=== PATIENT | female | born 1980 | race Caucasian/White ===

== ENCOUNTER → 2019-10-03 12:29 | Outpatient (CLI) | payer BC, SELFPAY ==
--- NOTE | ~2019-10-03 | MM_ITS ---
EXAMINATION: MM screening juan manuel BI w marsha HISTORY: Screening mammogram TECHNIQUE: Craniocaudal and mediolateral oblique 3-D tomosynthesis images were obtained and synthetic 2-D images were generated. CAD analysis was submitted and interpreted. COMPARISON: 10/20/2018 diagnostic right digital mammogram 08/01/2018 and 09/08/2013 bilateral digital screening mammogram examinations BREAST PARENCHYMAL COMPOSITION: The breasts are heterogeneously dense, which may obscure small masses . FINDINGS: There is a focal 5-6 mm asymmetric density not evident on the prior mammogram, situated pos teriorly in the outer left breast; diagnostic left mammogram is recommended, with ultrasound if requi red. Otherwise there is no evidence of suspicious mass, calcification, or architectural distortion to sugg est malignancy in either breast. There has been no suspicious interval change. IMPRESSION: 1. New asymmetric 5-6 mm opacity is suggested posteriorly in the outer left breast on screening CC vi ew 2. Diagnostic left mammogram is recommended, with ultrasound if required BI-RADS Category 0: Incomplete: Needs additional imaging evaluation. Reviewed, dictated and finalized at location A. ING INTERVENTIONIST IMPRESSION: 1. New asymmetric 5-6 mm opacity is suggested posteriorly in the outer left zehra ast on screening CC view 2. Diagnostic left mammogram is recommended, with ultrasound if required BI-RADS Category 0: Incomplete: Needs additional imaging evaluation.
== END ==
PROVIDERS: PCP Family Medicine; Visit Provider Nurse Practitioner
DX: Z12.31 Encounter for screening mammogram for malignant neoplasm of breast (principal); R92.8 Other abnormal and inconclusive findings on diagnostic imaging of breast
CPT/HCPCS: 77063; 77067

== ENCOUNTER → 2019-10-16 14:31 | Outpatient (CLI) | payer BC, SELFPAY ==
--- NOTE | ~2019-10-16 | MMUS_ITS ---
EXAMINATION: MM diagnostic mammo unilat LT, US breast LT complete HISTORY: New 5-6 mm asymmetric density situated posteriorly in the outer left breast on 10/03/2019 scr eening CC view. TECHNIQUE: Additional 3-D tomosynthesis images of the left breast were performed and synthetic 2-D im ages were generated. CAD analysis was submitted and interpreted. High resolution complete left breast ultrasound was performed. COMPARISON: 10/03/2019 bilateral digital screening mammogram FINDINGS: MAMMOGRAPHIC FINDINGS: No reproducible mass is evident. No architectural distortion, skin thickening or retraction or malign ant calcification. ULTRASOUND: No suspicious mass or shadowing is evident throughout the left breast. IMPRESSION: 1. No mammographic evidence of malignancy 2. Routine annual mammographic screening is recommended. BI-RADS Category 1: Negative Reviewed, dictated and finalized at location A. ENSATION SUPERVISOR IMPRESSION: 1. No mammographic evidence of malignancy 2. Routine annual mammographic screening is recommended. BI-RADS Category 1: Negative
== END ==
PROVIDERS: PCP Family Medicine; Visit Provider Obstetrics & Gynecology Gynecology
DX: R92.8 Other abnormal and inconclusive findings on diagnostic imaging of breast (principal)
CPT/HCPCS: 76641; 77065

== ENCOUNTER → 2020-10-16 14:45 | Outpatient (CLI) | payer BC, SELFPAY ==
--- NOTE | ~2020-10-16 | US_ITS ---
US thyroid 10/16/2020 15:01 Indication: Postprocedural hypothyroidism Procedure: High-resolution Limited ultrasound of the thyroid Comparison: No prior studies for comparison. Findings: The thyroid gland is surgically absent. No abnormal masses or fluid collections in the thyr oid bed. Impression: 1: Normal ultrasound of the thyroid bed. No residual masses. Reviewed, dictated and finalized at location B. EMBROIDERER Impression: 1: Normal ultrasound of the thyroid bed. No residual masses.
== END ==
DX: E89.0 Postprocedural hypothyroidism (principal)
CPT/HCPCS: 76536

== ENCOUNTER → 2021-11-27 11:58 | Outpatient (CLI) | payer BC, SELFPAY ==
--- NOTE | ~2021-11-27 | US_ITS ---
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 TECHNIQUE: Real-time sonographic images of the thyroid gland were obtained. COMPARISON: Comparison to multiple prior studies sequentially, with oldest reviewed study dated 09/28. FINDINGS: The thyroid gland is surgically absent. No abnormalities of the thyroid bed are identified. No abnormal vascularity. IMPRESSION: 1. Normal thyroid bed post thyroidectomy. No evidence for residual or recurrent malignancy. Reviewed, dictated and finalized at location A. IMPRESSION: 1. Normal thyroid bed post thyroidectomy. No evidence for residual or recurren t malignancy.
== END ==
PROVIDERS: PCP Family Medicine
DX: E89.0 Postprocedural hypothyroidism (principal)
CPT/HCPCS: 76536

== ENCOUNTER → 2022-10-26 08:45 | Outpatient (CLI) | payer BC, SELFPAY ==
--- NOTE | ~2022-10-26 | US_ITS ---
EXAMINATION: US thyroid DATE: 10/26/2022 09:25 INDICATION: Post procedural hypothyroidism. Papillary thyroid carcinoma. TECHNIQUE: Multiple ultrasound images of the thyroid were obtained. COMPARISON: Ultrasound 11/27/2021 FINDINGS: The thyroid is absent. There is no abnormal tissue in the thyroidectomy bed. IMPRESSION: 1. Thyroidectomy. Reviewed, dictated and finalized at location A. ARIAL MATHEMATICIAN IMPRESSION: 1. Thyroidectomy.
== END ==
PROVIDERS: PCP Family Medicine
DX: E89.0 Postprocedural hypothyroidism (principal)
CPT/HCPCS: 76536

== ENCOUNTER 2025-06-10 13:59 | Emergency (ER) | payer BC, SELFPAY ==
--- OUTSIDE RECORDS SUMMARY | 2024-10-02 03:50 | XMS_ITS ---
Author Organization [facility] Address [address] [place], [place] [id number] Care Team Providers Care Kiss Mixer Name Role Phone Aziza Frazier Unavailable Unavailable MIGUEL BAILEY Unavailable [phone] REASON FOR VISIT *Orthotic follow-up, feet doing well Encounters Encounter Location Date Provider Diagnosis [facility] [place] [address] [facility] [address] [place], [place] [id number] 10/02/2024 MIGUEL BAILEY Plan Of Treatment No Information Progress Notes * Halima AMATODOB:1980 (44 yo F)Acc No.[id number]:10/02/2024 Patient: Halima POSEY Provider: Carolann Bailey DPM :1980 A ge:44 Y S ex:Female Date:10/02/2024 Address[address] [id number] Subjective: * Chief Complaints: * 1 . *Orthotic follow-up, feet doing well. * Medical History: Objective: * Vitals: Assessment: Plan: * Treatment: * Billing Information: * Visit Code: * Procedure Codes: * Electronic signature of MIGUEL BAILEY DPM on 06/10/2025 at 02:01 PM CDT Sign off status: Pending * Provider: Carolann Bailey DPM Date: 0 10/02/2024 Generated for Printi ng/Faroseannag/eTransmitting on: 1 02:01 PM CDT
--- OUTSIDE RECORDS SUMMARY | 2024-10-12 03:30 | XMS_ITS ---
Author Organization [facility] Address [address] [address] Care Team Providers Care Rework Machine Operator Name Role Phone Aziza Frazier MD Primary Care Provider Amarjit Garrett [phone] Encounters Encounter Location Date Provider Diagnosis [facility] [address] [address] 10/12/2024 Amarjit Blanco Plan Of Treatment Next Appt Details Provider Name:Amarjit Blanco, 10/15/2025 08:00:00 AM, [address], [place] [address], [place], [address], Progress Notes * GEMINI AMATO LDOB:[birth year] (44 yo F)Acc No.[id number]:10/12/2024 [facility] Patient: JAGUAR POSEYLYUDMILA Bang Provider: Abhilash Blanco MD :1980 A ge:44 Y S ex:Female Date:10/12/2024 Address:[address], [id number] Pcp:Aziza Frazier MD Subjective: * Chief Complaints: * Objective: * Vitals: Assessment: Plan: * Treatment: * Billing Information: * Visit Code: * Procedure Codes: * Electronic signature of Ellen Blanco MD on 06/10/2025 at 02:01 PM CDT Sign off status: Pending * Provider: Abhilash Blanco MD Date: 0 10/12/2024 Generated for Rosangela augustin/Luisana/Stefani on: 1 02:01 PM CDT
--- NOTE | 2025-06-10 14:01 | ED_ITS ---
HPI - Skin/Abscess/Foreign Bdy General Chief complaint: Skin/Abscess/Foreign Body Stated complaint: Insect Bite LT Thigh Time Seen by Provider: 06/10/25 14:01 Source: patient Mode of arrival: ambulatory Limitations: no limitations History of Present Illness HPI narrative: Patient is a 44-year-old female who presents with left thigh redness and warmth after spider bite 2 days ago. Has been using ointment. Denies any fever, chills, nausea, vomiting, diarrhea. Is concerned because the redness has grown. Related Data Home Medications ?Medication ?Instructions ?Recorded ?Confirmed ?Last Taken ?Type levothyroxine 150 mcg tablet 150 mcg PO .6 times weekl y 11/12/22 06/10/25 Unknown History (Synthroid) norethindrone-e.estradiol tablet 06/10/25 Unknown His tory triphasic 0.5 mg/0.75 mg/1 mg-35 mcg tablet (Alyacen (28)) Allergies Allergy/AdvReac Type Severity Reaction Status Date / Time Sulfa (Sulfonamide Allergy Mild Rash Verified 06/10/25 14:01 Antibiotics) Review of Systems 2 Review of Systems: All systems reviewed & are unremarkable except as noted in HPI and below Constitutional: Constitutional: Denies body ache(s), Denies chills, Denies fatigue, Denies fever(s), Denies headache(s), Denies malaise and Denies weakness Eyes: Eyes: Denies blurry vision, Denies irritation and Denies loss of vision ENT: Denies otalgia, Denies headache(s), Denies nasal discharge, Denies sinus pain and Denies sore throat Cardiovascular: Cardiovascular: Denies chest pain, Denies irregular heart rhythm and Denies dyspnea Respiratory: Respiratory: Denies dyspnea Gastrointestinal: Gastrointestinal: Denies abdominal pain, Denies melena, Denies hematochezia, Denies diarrhea, Denies nausea and Denies vomiting Musculoskeletal: Musculoskeletal: Denies back pain, Denies myalgias and Denies arthralgias Integumentary/Breasts: Skin/Breast: Denies pruritus, Reports erythema, Denies rash, Reports skin swelling and Reports wounds Neurologic: Denies headache(s), Denies loss of vision and Denies weakness Psychiatric: Psychiatric: Reports no additional psychiatric complaints Endocrine: Endocrine: Denies fatigue PMFSH Past Medical History Medical History Skin cancer Anxiety Papillary thyroid carcinoma Family History Family History Mother Breast cancer Father Patient's father is in good health Grandparent Breast cancer Other Cerebrovascular accident Family history of cardiovascular disease Family history of genitourinary disease Family history of glaucoma Family history of mental disorder Hypertension Social History Social History Smoking status: Never smoker Second hand tobacco smoke exposure: No Alcohol intake: current Alcohol use details: socially Substance use: current Other substance usage details: edibles for sleep Comments At time of signature, agree with nursing past medical, surgical, social and family history. There is no relevant family history pertinent to the presenting complaint. Exam 2 Const: General: cooperative, healthy appearing, comfortable, no acute distress and well nourished Nutritional Appearance: well nourished O rientation/consciousness: patient oriented x3 Limitations: no limitations HENMT: Head: normal to inspection, normocephalic and atraumatic Ears: h earing grossly normal bilaterally and external ears normal Face/Nose/Sinus: N ormal external nose present, normal facial exam and face symmetric Face and sinus: normal facial exam and face symmetric Mouth: Yes lip normal Eyes: General: appearance normal, both eyes and all related structures A lignment and Position: alignment normal and position normal Periorbital: p eriorbital findings normal Eyelids: eyelids normal Pupils: Equal, round and reactive pupils present EOM: EOMs intact bilaterally Neck: Neck: normal visual inspection, full ROM and supple Chest: Chest palpation & inspection: normal inspection of the chest Resp: Effort & Inspection: normal respiratory effort and able to speak in complete sentences Auscultation: clear to auscultation bilaterally Cardio: Rate: regular rate Rhythm: regular rhythm Heart sounds: S1 normal heart sound present and S2 normal heart sound present GI: Inspection: normal to inspection Skin: General skin exam: normal color and no rashes or lesions noted Full body images: 1. erythema 5 cm x 4 cm with scabbed area 1cm x 0.5 cm at the center. warm to touch. No drainage Neuro: General: patient oriented x3 and moves all extremities Cranial nerves: Yes Equal, round and reactive pupils present Speech: normal speech Gait exam (Neuro): Normal gait present Extrem: General: normal to inspection, full ROM and no edema Psych: Appearance: grossly normal and well kempt Mental Status: mental status grossly normal Speech and movement: Normal speech and movement present Affect: normal affect Attitude: cooperative Thought process: Normal thought process present Course Course Emergency Course: Patient is aware of diagnosis, understands and agrees to treatment plan. Anticipatory guidance given. Patient agrees to follow-up as directed and is aware of reasons to seek care at the emergency department. Portions of this record may have been created with voice recognition software Level of Care: Express Care Visit Vital Signs Vital signs: Reviewed MDM - Skin/Abscess/Foreign Bdy MDM Narrative Medical decision making narrative: Pt well hydrated appearing, in no respiratory distress, hemodynamically stable. Recommend supportive care. The patient is stable at time of discharge the clinical impression was discussed and the patient was given the opportunity to ask questions, which were addressed as completely as possible given the information available at present. Anticipatory guidance and return to care precautions were discussed and the importance of primary care follow-up was stressed and encouraged. The patient voiced understanding of the plan, indications to return, and the need for follow-up. Exam findings show no acute concerns or changes Patient is appropriate for outpatient treatment and follow-up. Differential Diagnosis Differential diagnosis: Likely allergic reaction to drug, cellulitis, insect bites and contact dermatitis Medical Records Attestation: I reviewed the patient's medical records. Discharge Plan Discharge Clinical Impression: Accidental spider bite Cellulitis Qualifiers: Site of cellulitis: extremity Site of cellulitis of extremity: lower extremity Laterality: left Qualified Code(s): L03.116 - Cellulitis of left lower limb Patient Disposition: Home Condition: Stable Instructions: Cellulitis (ED) Additional Instructions: Please follow up with your Primary Care Doctor within 48-72 hours - call for an appointment. Rest and elevate affected area; apply moist heat 3-4 times daily for 10-15 minutes. Clean with soap and water only; Avoid using alcohol and peroxide. Elevate the affected area if possible Please take Antibiotics as directed. For pain, you may take: Tylenol 650-1000mg by mouth every 4-6 hours. Do not exceed 4000mg in 24 hours. Advil (Ibuprofen) 600 mg by mouth every 6 hours. Do not exceed 2400mg in 24 hours. 8 AM: Tylenol 11 AM: Ibuprofen 2 PM: Tylenol 5 PM: Ibuprofen 8 PM: Tylenol 11 PM: Ibuprofen 2 AM: Tylenol 5 AM: Ibuprofen If you experience any worsening redness, swelling, streaking (red lines), fever or chills please go to the ER Patient Language: Afghan Prescriptions: New cephalexin 500 mg capsule 500 mg PO QID 7 Days Qty: 28 0RF mupirocin 2 % ointment 1 applic topical BID Qty: 15 0RF No Action Alyacen 03/12/ (28) 0.5/0.75/1 mg- 35 mcg tablet levothyroxine [Synthroid] 150 mcg tablet 150 mcg PO .6 times weekly alprazolam 0.25 mg tablet 0.25 mg PO TID PRN (Reason: anxiety) Qty: 30 0RF Follow-up/Referrals: Aziza Frazier MD [Primary Care Provider, Family Practice] - 3 Days Time of Disposition: 14:37
--- OUTSIDE RECORDS SUMMARY | 2025-06-10 14:01 | XMS_ITS | Patient Health Record ---
Author Organization [facility] Address [address] [address] Care Team Providers Care Heat Treating Furnace Tender Name Role Phone Aziza Frazier MD Primary Care Provider UnavailAmarjit Yeboah Unavailable [phone] NacMeghana tovar Unavailable [phone] Allergies No Known Allergies Results Component Value Reference Range Notes TSH Reviewed date:10/17/2024 09:35:25 AM Interpretation:Normal Performing Lab:[place], [facility], [address] [place], [address] Michael Orr MD Notes/Report: NON-FASTING; NON-FASTING; NON-FASTING Received Date: TSH 1.12 Reference Range > or = 20 Years 0.40-4.50 Ranges First trimester 0.26-2.66 Second trimester 0.55-2.73 Third trimester 0.43-2.91 Thyroglobulin Quantitative a nd Antibody Reviewed date:10/17/2024 09:36:18 AM Interpretation:Normal Performing Lab:, [facility], [address] [facility] [place], [address] Arsalan Zhou Notes/Report: Received Date: NON-FASTING; NON-FASTING; NON-FASTING THYROGLOBULIN ANTIBODIES <1 < or = 1 IU/mL THYROGLOBULIN <0.1 Reference Range: Intact Thyroid 2.8-40.9 Athyrotic <0.1 Note: Abnormal flagging is based on the reference interval for patients with intact thyroid. This test was performed using the Denisha Akil chemiluminescent method. Values obtained from different assay methods cannot be used interchangeably. Thyroglobulin levels, regardless of value, should not be interpreted as absolute evidence of the presence or absence of disease. For additional information, please refer to [email or web address].Zones/faq/PEZ491 (This link is being provided for informational/ educational purposes only.) T4, FREE Reviewed date:10/17/2024 09:41:28 AM Interpretation:Normal Performing Lab:[place], [facility], [address] [place], [address] Michael Orr MD Notes/Report: Received Date: NON-FASTING; NON-FASTING; NON-FASTING T4, FREE 1.6 0.8-1.8 ng/dL Reason For Referral No Information Medications Medication SIG (Take, Route, Fr equency, Duration) Notes Start Date End Date Status ALPRAZolam 0.25 MG 1 tab(s) orally as needed Active Synthroid 150 MCG 1 tablet in the morn ing on an empty stomach Orally Once a day; Duration: 90 days Active Social History Tobacco Use: Social History Observation Description Date Details (start date - stop date) Never Smoker NA - NA Tobacco Use Question Answer Notes Tobacco use: Nonsmoker Problems Problem Type SNOMED Code ICD Code Onset Dates Problem Status W/U Status Risk Notes Problem Malignant neoplasm of thyroid gland (220594201) Malignant neoplasm of thyroid gland (C73) Active confirmed Problem Postoperative Hypothyroidism (94488115) Postprocedural hypothyroidism (E89.0) Active confirmed Vital Signs Blood pressure diastolic 76 mm Hg 10/12/2024 Height 69 in 10/12/2024 Blood pressure systolic 120 mm Hg 10/12/2024 Weight 165 lbs 10/12/2024 BMI 24.36 kg/m2 10/12/2024 Encounters Encounter Location Date Provider Diagnosis [facility] [address] [address] 10/12/2024 Meghana Naceanceno Postprocedural hypothyroidism E89.0 and Malignant neoplasm of thyroid gland C73 [facility] [address] [place] [address] 10/17/2024 Amarjit Blanco Assessments Encounter Date Diagnosis (ICD Code) Assessment Notes Treatment Notes Treatment Clinical Notes Section Notes 10/12/2024 Postprocedural hypothyroidism (ICD-10 - E89.0) old record reviewed: S/p thyroidectomy due to papillary carcinoma in 2018 Oct 2023: she has no complaints Ultrasound in 2022 are normal Continue Synthroid 150 mcg daily Whole body scan ordered TSH goal WNL, she is 5 yrs post cancer Oct 2024: Continue Synthroid 150 mcg daily WBS was normal in Oct 2023 TSH goal wnl 10/12/2024 Malignant neoplasm of thyroid gland (ICD-10 - C73) old record reviewed November 2017: Hx of papillary carcinoma in 2017 Path report: 1.5x1.2cm unifocal, nonencapsulated, with focal invasion of perithyroidal tissue (SHows Hurthle cell like substance) extending to margin, Staging: T3N0M0 s/p right hemithyroidectomy followed by total thyroidectomy 11/2017 HUMMEL treatment 12/2017 Whole body scans 12/2017 and 05/2019, both negative Sep 2019: Whole body scan negative. Oct 2022: USG normal 2023: Whole body scan Plan Of Treatment Pending Test Test Name Order Date TSH 10/13/2022 TSH 09/25/2019 TSH 10/14/2023 Beta HCG, Serum (Quantitative) Beta HCG, Serum (Qualitative) 09/25/2019 Thyroglobulin Quantitative and Antibody 09/25/2019 Thyroglobulin Quantitative and Antibody 11/23/2022 Thyroglobulin Quantitative and Antibody 10/14/2023 Thyroglobulin 10/13/2022 Future Test Test Name Order Date TSH 11/27/2022 Thyroglobulin Quantitative and Antibody 11/27/2022 TSH 10/28/2023 Thyroglobulin Quantitative and Antibody 10/28/2023 TSH 11/04/2023 Thyroglobulin Quantitative and Antibody 11/04/2023 Next Appt Details Provider Name:Amarjit Blanco, 10/15/2025 08:00:00 AM, [address], [facility] [address], [place], [address], Insurance Providers Payer Name Payer Address Payer Phone Subscriber Number Group Number Insured Name Patient Relationship to Insured Coverage Start Date Coverage End Date [employer] CHOICE [address] [place] [address] [id number] GEMINI AMATO Self - patient is the insured Medications Administered Medication Instructions Date of Administration Dosage Notes Thyrogen 10/16/2019 0.9 mg [facility]# [id number] 0-01 Thyrogen 10/17/2019 0.9 mg [facility]# [id number] 0-01 Medical (General) History Medical History History ICD Code 26-06 2.5 hours of reconst ructive surgery due to childbirth, 03-27-08 C section, 11-09-17 Thyroidectomy, 03-24-18 Lipoma removal, 11-04-18 skin cancer removal Surgical History Surgery Date(Month/Year)
--- OUTSIDE RECORDS SUMMARY | 2025-06-10 14:01 | XMS_ITS | Clinical Summary ---
Author Organization [facility] Address [address] [place] [phone] Phone Care Team Providers Care Flask Maker Name Role Phone Aziza Frazier MD Primary Care Provider [phone] Allergies No known active allergies Medications No known medications Social History Tobacco Use Types Packs/Day Years Used Date Smoking Tobacco: Never Assessed Comments Unknown Sex and Gender Information Value Date Recorded Sex Assigned at Not on file Legal Sex Female 12:54 PM CDT Gender Identity Not on file Sexual Orientation Not on file Last Filed Vital Signs Vital Sign Reading Time Taken Comments Blood Pressure 140/91 11/30/2023 9:05 AM CDT Pulse 87 11/30/2023 9:05 AM CDT Temperature 36.2 C (97.2 F) 11/30/2023 9:05 AM CDT Respiratory Rate 16 11/30/2023 9:05 AM CDT Oxygen Saturation 100% 11/30/2023 9:05 AM CDT Inhaled Oxygen Concentration - - Weight - - Height - - Body Mass Index - - Plan of Treatment Health Maintenance Due Date Last Done Comments DTAP/TDAP/TD VACCINES (1 - Tdap) 1997 HEPATITIS B VACCINES (1 of 3 - + 3-dose series) 1997 HPV/Cotest (21-29) 1999 CERVICAL CANCER SCREENING 2008 HPV/Cotest (30-65) 2008 PAP SMEAR 2008 COLORECTAL SCREENING 2023 Colorectal Cancer Screening 2023 FIT-DNA Q 3 years 2023 FIT/FOBT Q 1 year 2023 Flex Sig/CT Colonography Q 5 years 2023 BREAST CANCER SCREENING 10/28/2024 10/28/19 24, 10/28/2023, 10/22/2022, Additional history exists INFLUENZA VACCINE (#1) 2025 HPV VACCINES Aged Out No longer eligi ble based on patient's age to complete this topic Insurance [facility] BLUE ACCESS CHOICE Care Teams Flask Maker Relationship Specialty Start Date End Date Aziza Frazier MD [address] [place] [address] PCP - General Family Practice 11/23/17
--- OUTSIDE RECORDS SUMMARY | 2025-06-10 14:01 | XMS_ITS | Clinical Summary ---
Author Organization [facility] Address [address] [place] [address] Care Team Providers Care Bowling Floor Desk Clerk Name Role Phone Aziza Frazier MD Primary Care Provider [phone] Allergies Active Allergy Reactions Criticality Noted Date Comments Sulfa (Sulfonamide Antibiotics) Medications levothyroxine (SYNTHROID) 150 mcg tablet Take 1 tablet (150 mcg total) by mouth commercial service technician before breakfast Active ALPRAZolam (XANAX) 0.25 mg tablet Take 1 tablet (0.25 mg total) by mouth nightly as needed for anxiety Active Pirmella 0.5/0.75/1 mg- 35 mcg per tablet 0 Active Active Problems No known active problems Encounters Date Type Department Care Team Description 04/20/2025 6:30 AM CDT - 04/20/2025 11:59 PM CDT Hospital Encounter [facility] [address] [place] [address] Heterogeneously dense tissue of both breasts on mammography; At high risk for breast cancer Discharge Disposition: Discharge to home or self care from Last 3 Months Immunizations Immunization Administration Dates Next Due Influenza, Quadrivalent, Spl it, Preservative Free, Intramuscular 06/24/2018 Influenza, Trivalent, IM (MDV) 06/26/2018 Influenza, Unspecified 07/13/2024 Surgical History Surgery Date Site/Laterality Comments SECTION THYROIDECTOMY Medical History Medical History Date Comments History of thyroidectomy Skin cancer History of radiation therapy Family History Medical History Relation Name Comments Prostate cancer Father Lung cancer Maternal Grandfather Breast cancer Mother Ovarian cancer Paternal Grandmother Relation Name Status Comments Father Maternal Grandfather Mother Paternal Grandmother Social History Tobacco Use Types Packs/Day Years Used Date Smoking Tobacco: Never Tobacco Cessation:Counseling Given: Not Answered Alcohol Use Standard Drinks/Week Comments Yes 0 (1 standard drink = 0.6 oz pur e alcohol) socially Comments Unknown Sex and Gender Information Value Date Recorded Sex Assigned at Not on file Legal Sex Female 8:15 AM DIE MACHINE OPERATOR Gender Identity Female 05/30/2020 12:14 PM CDT Sexual Orientation Straight 05/30/2020 12 :14 PM CDT Obstetrics History Last Filed Vital Signs Vital Sign Reading Time Taken Comments Blood Pressure - - Pulse - - Temperature - - Respiratory Rate - - Oxygen Saturation - - Inhaled Oxygen Concentration - - Weight 75.3 kg (166 lb) 04/20/2025 6:43 AM CDT Height 175.3 cm (5' 9) 04/20/2025 6:43 AM CDT Body Mass Index 24.51 04/20/2025 6:43 AM CDT Plan of Treatment Health Maintenance Due Date Last Done Comments Cervical Cancer Screening 1978 Colon Cancer Screening-Colonoscopy 1978 Depression Screening 1978 Hepatitis C Screening 1978 DTaP/Tdap/Td Vaccine (1 - Tdap) 1989 Hepatitis B Screening 1996 Regular Well Visit/Exam 18-64 1996 Influenza Vaccine (#1) 2025 , 06/26/2018, 06/24/2018 Breast Cancer Screening-Mammogram 11/02/2025 11/02/2024, 10/28/2023, 10/22/2022, Additional history exists HPV Vaccines Aged Out No longer eligi ble based on patient's age to complete this topic Pneumococcal vaccine <65 Aged Out No longer eligible based on patient's age to complete this topic Procedures Procedure Name Priority Date/Time Associated Diagnosis Comments MRI BREAST BILATERAL W WO CONTRAST Schedule Routine, Read Routine (OP Routine) 04/20/2025 7:23 AM CDT Heterogeneously dense tissue of both breasts on mammography At high risk for breast cancer SCREENING MAMMOGRAM BILATERAL W KIET Schedule Routine, Read Routine (OP Routine) 11/02/2024 9:10 AM DIE MACHINE OPERATOR Family history of breast cancer from Last 3 Months or Most Recently Relevant to Health Maintenance Results * MRI Breast Bilateral W WO Contrast (04/20/2025 7:23 AM CDT) Anatomical Region Laterality Modality Breast Bilateral Magnetic Resonan ce 04/20/2025 9:43 AM CDT Impressions 04/20/2025 9:43 AM CDT No MRI evidence of malignancy in either breast. OVERALL FINAL ASSESSMENT: BI-RADS Category 1: Negative. RECOMMENDATION: Annual screening mammography and breast MRI are recommended. Electronically signed by: Delphine Arrington M.D. Narrative 04/20/2025 9:43 AM CDT EXAMINATION: 1. MRI EXAMINATION OF THE BREASTS WITH AND WITHOUT CONTRAST 2. 3D POST PROCESSING ON A DEDICATED 3D WORKSTATION HISTORY: 44-year-old woman presenting for supplemental screening due to elevated lifetime risk due to family history (23.7%) and dense breast tissue. TECHNIQUE: MRI examination of the breasts per breast tumor protocol with and without gadolinium contrast. A dedicated breast imaging coil was used. The images were transferred to a breast CAD system for 3D post processing and contrast kinetics analysis. CONTRAST: Gadoterate meglumine, 14 ml COMPARISON: MRI dated 04/14/2024, 04/14/2023, 04/16/2022, and screening mammogram dated 11/02/2024. BREAST COMPOSITION: Extreme fibroglandular tissue BACKGROUND PARENCHYMAL ENHANCEMENT: Mild FINDINGS: No new suspicious enhancing mass or non-mass enhancement in either breast. No abnormally enlarged lymph nodes are identified in the visualized portions of either axilla. There are unchanged T1 intrinsically hyperintense lesions in the sternum with associated signal dropout on the fat saturated sequences, which may represent benign hemangiomas. us Dayanna Segundo NP [facility] MRI PROCEDURES Final Resul t * Screening Mammogram Bilateral W Kiet (11/02/2024 9:10 AM DIE MACHINE OPERATOR) Anatomical Region Laterality Modality Breast Bilateral Mammography Narrative 11/02/2024 11:10 AM DIE MACHINE OPERATOR Mammogram Technique: Bilateral Digital Breast Tomosynthesis, Bilateral C-view 2D Screening mammogram. Views obtained: bilateral craniocaudal and bilateral mediolateral oblique. Computer Aided Detection was performed. Mammogram Findings: The present examination has been compared to prior imaging studies performed at [facility] on 10/16/2021, 10/22/2022 and 10/28/2023. The breasts are extremely dense, which lowers the sensitivity of mammography. There is no suspicious abnormality in either breast. Impression: There is no mammographic evidence of malignancy. Annual screening mammography is recommended. Consider breast MRI for supplemental screening given the patient's extremely dense breast tissue. OVERALL FINAL ASSESSMENT: BI-RADS CATEGORY 1: Negative. Procedure Note Zoraida Allen MD - 11/02/2024 Mammogram Technique: Bilateral Digital Breast Tomosynthesis, Bilateral C-view 2D Screening mammogram. Views obtained: bilateral craniocaudal and bilateral mediolateral oblique. Computer Aided Detection was performed. Mammogram Findings: The present examination has been compared to prior imaging studies performed at [facility] on 10/16/2021, 10/22/2022 and 10/28/2023. The breasts are extremely dense, which lowers the sensitivity of mammography. There is no suspicious abnormality in either breast. Impression: There is no mammographic evidence of malignancy. Annual screening mammography is recommended. Consider breast MRI for supplemental screening given the patient's extremely dense breasttissue. OVERALL FINAL ASSESSMENT: BI-RADS CATEGORY 1: Negative. Dayanna Segundo NP IM MAMMO PROCEDURES Final Res ult from Last 3 Months or Most Recently Relevant to Health Maintenance Insurance [facility] ACCESS CHOICE ANTHEM ACCESS CHOICE ANTHEM ACCESS CHOICE Care Teams Bowling Floor Desk Clerk Relationship Specialty Start Date End Date Aizza Frazier MD PCP - General Family Medicine 04/29/20
--- OUTSIDE RECORDS SUMMARY | 2025-06-10 14:01 | XMS_ITS | Clinical Summary ---
Author Organization [facility] Care Team Providers Care Online Affiliate Marketing Manager Name Role Phone Unavailable Primary Care Provider Unavailabl e Social History Tobacco Use Types Packs/Day Years Used Date Smoking Tobacco: Never Assessed Comments Unknown Sex and Gender Information Value Date Recorded Sex Assigned at Not on file Legal Sex Female 1:45 PM GLASS SETTER Gender Identity Not on file Sexual Orientation Not on file Plan of Treatment Health Maintenance Due Date Last Done Comments Hepatitis C Virus (HCV) Screening 1978 TdaP Immunization 1978 Hepatitis B Immunization (1 of 3 - 19+ 3-dose series) 1997 Pap Smear 1999 Cervical Cancer Screening (CCS) 2008 HPV/Cotest 2008 Cologuard 2023 Colonoscopy 2023 Colorectal Cancer Screening 2023 Immunochemical Fecal Occult Blood 2023 Influenza Immunization (#1) 05/07/202501/2020, 06/26/2018 SARS-COV-2 Immunization ( season) 2025 Respiratory Syncytial Virus (RSV) Immunization (Adult) (1 - 1-dose 75+ series) 2053 Human Papillomavirus (HPV) Immunization Aged Out No longer eligible b ased on patient's age to complete this topic Meningococcal Immunization (ACWY) Aged Out No longer eligible b ased on patient's age to complete this topic Pneumococcal Immunization Combined Aged Out No longer eligible b ased on patient's age to complete this topic Rotavirus Immunization Aged Out No lo nger eligible based on patient's age to complete this topic
--- OUTSIDE RECORDS SUMMARY | 2025-06-10 14:01 | XMS_ITS | Patient Health Record ---
Author Organization [facility] Address [address] [place], [place] [id number] Care Team Providers Care Extrusion Utility Worker Name Role Phone Aziza Frazier Unavailable Unavailable MIGUEL BAILEY Unavailable [phone] Allergies Allergen (clinical drug ingredient) Drug/Non Drug Allergy documented on EMR Reaction Allergy Type Onset Date Status Substance with sulfonamide structure and antibacterial mechanism of action (substance) Sulfa Antibiotics Unknown Drug Allergy Active Reason For Referral No Information Medications Medication SIG (Take, Route, Fr equency, Duration) Notes Start Date End Date Status ALPRAZolam 0.25 MG 1 tablet Orally Twice a day Active Synthroid 150 MCG 1 tablet in the morn ing on an empty stomach Orally Once a day Active Immunizations Vaccine Route Administration Date Status Comme nts Pneumococcal conjugate PCV 13 Unknown 09/05/2024 Refuse d Influenza, high dose seasonal Unknown 09/05/2024 Refuse d Vital Signs Height-cm 175.26 cm 09/05/2024 Weight-kg 72.12 kg 09/05/2024 Height 69 in 09/05/2024 Weight 159 lbs 09/05/2024 BMI 23.48 kg/m2 09/05/2024 Encounters Encounter Location Date Provider Diagnosis [facility] [address] [place] [id number] 06/19/2024 MIGUEL BAILEY Plantar fascial fibromatosis M72.2 ; Posterior tibial tendinitis, right leg M76.821 ; Calcaneal spur, right foot M77.31 and Left foot pain M79.672 [facility] [address] [place], [place] [id number] 07/10/2024 MIGUEL SNOOK Plantar fascial fibromatosis M72.2 ; Posterior tibial tendinitis, right leg M76.821 ; Calcaneal spur, right foot M77.31 and Pain in right foot M79.671 [facility] [place] [id number] [facility] [address] [place], [place] [id number] 09/05/2024 MIGUEL SNOOK Plantar fascial fibromatosis M72.2 ; Posterior tibial tendinitis, right leg M76.821 ; Calcaneal spur, right foot M77.31 and Pain in right foot M79.671 Assessments Encounter Date Diagnosis (ICD Code) Assessment Notes Treatment Notes Treatment Clinical Notes Section Notes 06/19/2024 Plantar fascial fibromatosis (ICD-10 - M72.2) Plantar Fascitis: I discussed anti-inflammatory treatment options and various means of pronation control with the patient. I educated the patient on icing and stretching, supportive shoegear, and the use of orthotic devices. PowerStep Inserts: The patient was dispensed and fitted with over the counter arch supports. The patient was educated on their use and effect. All questions were answered. 06/19/2024 Posterior tibial tendinitis, right leg (ICD-10 - M76.821) Posterior Tibialis Tendon Dysfunction: I discussed anti-inflammatory treatment options and various means of immobilization with the patient. I educated the patient on icing and stretching, supportive shoegear, and the use of orthotic devices and bracing. 07/10/2024 Plantar fascial fibromatosis (ICD-10 - M72.2) Plantar Fascitis: I discussed anti-inflammatory treatment options and various means of pronation control with the patient. I educated the patient on icing and stretching, supportive shoegear, and the use of orthotic devices. Orthotic Scan: The patient was scanned for functional orthotic devices. This was done in the subtalar joint neutral position in a non-weightbearing fashion. The patient will follow-up in 3-4 weeks time to be dispensed and fitted with the devices. 07/10/2024 Posterior tibial tendinitis, right leg (ICD-10 - M76.821) Posterior Tibialis Tendon Dysfunction: I discussed anti-inflammatory treatment options and various means of immobilization with the patient. I educated the patient on icing and stretching, supportive shoegear, and the use of orthotic devices and bracing. 09/05/2024 Plantar fascial fibromatosis (ICD-10 - M72.2) Plantar Fascitis: I discussed anti-inflammatory treatment options and various means of pronation control with the patient. I educated the patient on icing and stretching, supportive shoegear, and the use of orthotic devices. Orthotic Dispense: The orthotic devices were dispensed and fitted. It was noted that the orthotic conformed well to the patient's foot in the subtalar joint neutral position. The patient was educated on the device's use, as well as the gradual break-in period for the device. 09/05/2024 Posterior tibial tendinitis, right leg (ICD-10 - M76.821) Posterior Tibialis Tendon Dysfunction: I discussed anti-inflammatory treatment options and various means of immobilization with the patient. I educated the patient on icing and stretching, supportive shoegear, and the use of orthotic devices and bracing. 09/05/2024 Calcaneal spur, right foot (ICD-10 - M77.31) 07/10/2024 Calcaneal spur, right foot (ICD-10 - M77.31) 06/19/2024 Calcaneal spur, right foot (ICD-10 - M77.31) 06/19/2024 Left foot pain (ICD-10 - M79.672) 07/10/2024 Pain in right foot (ICD-10 - M79.671) 09/05/2024 Pain in right foot (ICD-10 - M79.671) Plan Of Treatment No Information Insurance Providers Payer Name Payer Address Payer Phone Subscriber Number Group Number Insured Name Patient Relationship to Insured Coverage Start Date Coverage End Date [facility] ([facility]) ATTN CLAIMS [address] [place] [address] [id number] Halima Amato Self - patient is the insured Medical (General) History Medical History History ICD Code skin cancer Leg/Feet cramps Thyroid Disease Surgical History Surgery Date(Month/Year) thyroidectomy
--- OUTSIDE RECORDS SUMMARY | 2025-06-10 14:02 | XMS_ITS | Encounter Summary ---
Author Organization [facility] Address [address] [place] [address] Phone Care Team Providers Care Warehouse Freight Handler Name Role Phone Aziza Frazier MD Primary Care Provider [phone] Encounter Details Date Type Department Care Team (Late st Contact Info) Description 10/18/2020 Telephone [facility] Surgery [address] [place] [address] Advanced Medicine 5th [place] [address] [place] [phone] Mili Ruth Social History Tobacco Use Types Packs/Day Years Used Date Smoking Tobacco: Never Alcohol Use Standard Drinks/Week Comments Yes 0 (1 standard drink = 0.6 oz pur e alcohol) socially Comments Unknown Sex and Gender Information Value Date Recorded Sex Assigned at Not on file 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
[2025-06-10 14:06] VITALS: BP 125/89; PULSE 89; RESP 18; TEMP 37; O2SAT 99
== END 2025-06-10 14:40 | disposition home or self-care (01) ==
PROVIDERS: Emergency Provider Nurse Practitioner Family; PCP Family Medicine
DX: L03.116 Cellulitis of left lower limb (principal); S70.362A Insect bite (nonvenomous), left thigh, initial encounter; W57.XXXA Bitten or stung by nonvenomous insect and other nonvenomous arthropods, initial encounter; F41.9 Anxiety disorder, unspecified; Z85.828 Personal history of other malignant neoplasm of skin; Z85.850 Personal history of malignant neoplasm of thyroid
CPT/HCPCS: 99213; G0463

== ENCOUNTER 2025-07-15 16:23 | Emergency (ER) | payer BC, SELFPAY ==
--- OUTSIDE RECORDS SUMMARY | 2024-10-12 02:30 | XMS_ITS ---
Author Organization [facility] Address [address] [address] Care Team Providers Care Campground Manager Name Role Phone Aziza Frazier MD Primary Care Provider Amarjit Garrett [phone] Encounters Encounter Location Date Provider Diagnosis [facility] [address] [address] 10/12/2024 Amarjit Blanco Plan Of Treatment Next Appt Details Provider Name:Amarjit Blanco, 10/15/2025 08:00:00 AM, [address], [place] [address], [place], [address], Progress Notes * GEMINI AMATO LDOB:[birth year] (44 yo F)Acc No.[id number]:10/12/2024 [facility] Patient: JAGUAR POSEYLYUDMILA Bang Provider: Abhilash Blanco MD :1980 A ge:44 Y S ex:Female Date:10/12/2024 Address:[address], [id number] Pcp:Aziza Frazier MD Subjective: * Chief Complaints: * Objective: * Vitals: Assessment: Plan: * Treatment: * Billing Information: * Visit Code: * Procedure Codes: * Electronic signature of Ellen Blanco MD on 07/15/2025 at 04:29 PM SHARK BIOLOGIST Sign off status: Pending * Provider: Abhilash Blanco MD Date: 0 10/12/2024 Generated for Rosangela augustin/Luisana/Stefani on: 1 09/14/2024 04:29 PM SHARK BIOLOGIST
--- OUTSIDE RECORDS SUMMARY | 2025-07-15 16:29 | XMS_ITS | Clinical Summary ---
Author Organization [facility] Address [address] [place] [phone] Care Team Providers Care Patient Observation Assistant Name Role Phone Aziza Frazier MD Primary Care Provider Allergies Active Allergy Reactions Criticality Noted Date Comments Sulfa (Sulfonamide Antibiotics) Medications levothyroxine (SYNTHROID) 150 mcg tablet Take 1 tablet (150 mcg total) by mouth research program internship before breakfast Active ALPRAZolam (XANAX) 0.25 mg tablet Take 1 tablet (0.25 mg total) by mouth nightly as needed for anxiety Active Pirmella 0.5/0.75/1 mg- 35 mcg per tablet 0 Active Active Problems No known active problems Encounters Date Type Department Care Team Description 04/20/2025 6:30 AM CDT - 04/20/2025 11:59 PM CDT Hospital Encounter [facility] [address] [place] [phone] Heterogeneously dense tissue of both breasts [...] on file 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 Dayanna Segundo NP [facility] [place] MRI PROCEDURES Montse sumanth Result * Screening Mammogram Bilateral W Kiet (11/02/2024 9:10 AM PROFESSOR OF GEOGRAPHY) Anatomical Region Laterality Modality Breast Bilateral Mammography Narrative 11/02/2024 11:10 AM PROFESSOR OF GEOGRAPHY Mammogram Technique: Bilateral Digital Breast Tomosynthesis, Bilateral C-view 2D Screening mammogram. Views obtained: bilateral craniocaudal and bilateral mediolateral oblique. Computer Aided Detection was performed. Mammogram Findings: The present examination has been compared to prior imaging studies performed at [facility] on 10/16/2021, 10/22/2022 and 10/28/2023. The breasts [...] compared to prior imaging studies performed at [facility] on 10/16/2021, 10/22/2022 and 10/28/2023. The breasts are extremely dense, which lowers the sensitivity of mammography. There is no suspicious abnormality in either breast. Impression: There is no mammographic evidence of malignancy. Annual screening mammography is recommended. Consider breast MRI for supplemental screening given the patient's extremely dense breasttissue. OVERALL FINAL ASSESSMENT: BI-RADS CATEGORY 1: Negative. Dayanna Segundo NP IMG MAMMO PROCEDURES Fi nal Result from Last 3 Months or Most Recently Relevant to Health Maintenance Insurance [facility] ACCESS CHOICE ANTHEM ACCESS CHOICE ANTHEM ACCESS CHOICE Care Teams Patient Observation Assistant Relationship Specialty Start Date End Date Aziza Frazier MD PCP - General Family Medicine 04/29/20
--- OUTSIDE RECORDS SUMMARY | 2025-07-15 16:29 | XMS_ITS | Clinical Summary ---
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
--- OUTSIDE RECORDS SUMMARY | 2025-07-15 16:29 | XMS_ITS | Patient Health Record ---
Author Organization [facility] Address [address] [place], [place] [id number] Care Team Providers Care Counter Help Name Role Phone FreddieAziza Unavailable Unavailable MIGUEL BAILEY Unavailable [phone] Allergies Allergen (clinical drug ingredient) Drug/Non Drug Allergy documented on EMR Reaction Allergy Type Onset Date Status Substance with sulfonamide structure and antibacterial mechanism of action (substance) Sulfa Antibiotics Unknown Drug Allergy Active Reason For Referral No Information Medications Medication SIG (Take, Route, Frequency, Duration) Notes Start Date End Date Status ALPRAZolam 0.25 MG Tablet 1 tablet Orall y Twice a day Active Synthroid 150 MCG Tablet 1 tablet in the morning on an empty stomach Orally Once a day Active Immunizations Vaccine Route Administration Date Status Comme nts Influenza, high dose seasonal Unknown 09/05/2024 Refuse d Pneumococcal conjugate PCV 13 Unknown 09/05/2024 Refuse d Vital Signs Height-cm 175.26 cm 09/05/2024 Weight-kg 72.12 kg 09/05/2024 Height 69 in 09/05/2024 Weight 159 lbs 09/05/2024 BMI 23.48 kg/m2 09/05/2024 Encounters Encounter Location Date Provider Diagnosis [facility] [address] [address] [facility] [address] [place], [place] [id number] 09/05/2024 MIGUEL BAILEY Plantar fascial fibromatosis M72.2 ; Posterior tibial tendinitis, right leg M76.821 ; Calcaneal spur, right foot M77.31 and Pain in right foot M79.671 Assessments Encounter Date Diagnosis (ICD Code) Assessment Notes Treatment Notes Treatment Clinical Notes Section Notes 09/05/2024 Plantar fascial fibromatosis (ICD-10 - M72.2) [...] Calcaneal spur, right foot (ICD-10 - M77.31) 09/05/2024 Pain in right foot (ICD-10 - M79.671) Plan Of Treatment No Information Insurance Providers Payer Name Payer Address Payer Phone Subscriber Number Group Number Insured Name Patient Relationship to Insured Coverage Start Date Coverage End Date [facility] ([facility]) ATTN CLAIMS [address] [place] [address] [id number] Halima Amato Self - patient is the insured Medical (General) History Medical History History ICD Code skin cancer Leg/Feet cramps Thyroid Disease Surgical History Surgery Date(Month/Year) thyroidectomy
--- OUTSIDE RECORDS SUMMARY | 2025-07-15 16:29 | XMS_ITS | Patient Health Record ---
Author Organization [facility] Address [address] [address] Care Team Providers Care Cash Analyst Name Role Phone Aziza Frazier MD Primary Care Provider UnavailAmarjit Yeboah Unavailable [phone] NacMeghana tovar Unavailable [phone] Allergies No Known Allergies Results Component Value Reference Range Notes TSH Reviewed date:10/17/2024 09:35:25 AM Interpretation:Normal Performing Lab:[place], [facility], [address] [place], [address] Michael Orr MD Notes/Report: Received Date: NON-FASTING; NON-FASTING; NON-FASTING TSH 1.12 Reference Range > or = 20 Years 0.40-4.50 Ranges First trimester 0.26-2.66 Second trimester 0.55-2.73 Third trimester 0.43-2.91 Thyroglobulin Quantitative a nd Antibody Reviewed date:10/17/2024 09:36:18 AM Interpretation:Normal Performing Lab:[place], [facility], [address], [place], [address] Arsalan Zhou Notes/Report: Received Date: NON-FASTING; NON-FASTING; NON-FASTING THYROGLOBULIN ANTIBODIES <1 < or = 1 IU/mL THYROGLOBULIN <0.1 Reference Range: Intact Thyroid 2.8-40.9 Athyrotic <0.1 Note: Abnormal flagging is based on the reference interval for patients with intact thyroid. This test was performed using the Denisha Tieton chemiluminescent method. Values obtained from different assay methods cannot be used interchangeably. Thyroglobulin levels, regardless of value, should not be interpreted as absolute evidence of the presence or absence of disease. 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 Vital Signs Blood pressure diastolic 76 mm Hg 10/12/2024 Height 69 in 10/12/2024 Blood pressure systolic 120 mm Hg 10/12/2024 Weight 165 lbs 10/12/2024 BMI 24.36 kg/m2 10/12/2024 Encounters Encounter Location Date Provider Diagnosis [facility] [address] [address] 10/12/2024 Meghana Naceanceno Postprocedural hypothyroidism E89.0 and Malignant neoplasm of thyroid gland C73 [facility] [address] [place] [address] 10/17/2024 Amarjit Blanco Assessments Encounter Date Diagnosis [...] Pending Test Test Name Order Date TSH 09/25/2019 TSH 10/14/2023 TSH 10/13/2022 Beta HCG, Serum (Quantitative) Beta HCG, Serum (Qualitative) 09/25/2019 Thyroglobulin Quantitative and Antibody 09/25/2019 Thyroglobulin Quantitative and Antibody 11/23/2022 Thyroglobulin Quantitative and Antibody 10/14/2023 Thyroglobulin 10/13/2022 Future Test Test Name Order Date TSH 11/27/2022 Thyroglobulin Quantitative and Antibody 11/27/2022 TSH 10/28/2023 Thyroglobulin Quantitative and Antibody 10/28/2023 TSH 11/04/2023 Thyroglobulin Quantitative and Antibody 11/04/2023 Next Appt Details Provider Name:Amarjit Blanco, 10/15/2025 08:00:00 AM, [address], [facility], [place], [address], Insurance Providers Payer Name Payer Address Payer Phone Subscriber Number Group Number Insured Name Patient Relationship to Insured Coverage Start Date Coverage End Date [employer] [address] [place] [address] [id number] GEMINI AMATO Self - patient is the insured Medications Administered Medication Instructions Date of Administration Dosage Notes Thyrogen 10/16/2019 0.9 mg [facility]# [id number] 0-01 Thyrogen 10/17/2019 0.9 mg [facility]# [id number] 0-01 Medical (General) History Medical History History ICD Code 26-06 2.5 hours of reconst ructive surgery due to childbirth, 03-27-08 C section, 11-09-17 Thyroidectomy, 03-24-18 Lipoma removal, 11-04-18 skin cancer removal Surgical History Surgery Date(Month/Year)
--- OUTSIDE RECORDS SUMMARY | 2025-07-15 16:29 | XMS_ITS | Clinical Summary ---
Author Organization [facility] Address [address] [place] [phone] Phone Care Team Providers Care Loading Dock Helper Name Role Phone Aziza Frazier MD Primary Care Provider Allergies No known active allergies Medications No [...] patient's age to complete this topic Insurance [facility] BLUE ACCESS CHOICE Care Teams Loading Dock Helper Relationship Specialty Start Date End Date Aziza Frazier MD [address] [place] [address] PCP - General Family Practice 11/23/17
[2025-07-15 16:33] VITALS: BP 143/89; PULSE 96; RESP 18; TEMP 37.4; O2SAT 98
--- NOTE | 2025-07-15 16:49 | ED_ITS ---
HPI - URI/Sore Throat General Chief Complaint: Upper Respiratory Infection Stated Complaint: fever Time Seen by Provider: 07/15/25 16:35 Source: patient and RN notes reviewed Mode of arrival: ambulatory Limitations: no limitations History of Present Illness HPI Narrative: 44-year-old female patient presents today complaining of a 2 day history of sore throat cough postnasal drip, chills, cough, body aches, fatigue, fever with a T- max of 101.2?. She also reports some mild shortness of breath with exertion. Currently rates her pain 3/10 and has tried some DayQuil with mild relief. She is a nonsmoker. Needs a note for work tomorrow. Works at a school. Related Data Home Medications ?Medication ?Instructions ?Recorded ?Confirmed ?Last Taken ?Type levothyroxine 150 mcg tablet 150 mcg PO .6 times weekl y 11/12/22 06/10/25 Unknown History (Synthroid) norethindrone-e.estradiol tablet 06/10/25 Unknown His tory triphasic 0.5 mg/0.75 mg/1 mg-35 mcg tablet (Alyacen (28)) Allergies Allergy/AdvReac Type Severity Reaction Status Date / Time banana Allergy Mild Anaphylaxis Verified 07/15/25 16:34 Sulfa (Sulfonamide Allergy Mild Rash Verified 07/15/25 16:34 Antibiotics) REPLACED BY [facility] Past Medical History Medical History Skin cancer Anxiety Papillary thyroid carcinoma Family History Family History Mother Breast cancer Father Patient's father is in good health Grandparent Breast cancer Other Cerebrovascular accident Family history of cardiovascular disease Family history of genitourinary disease Family history of glaucoma Family history of mental disorder Hypertension Social History Social History Second hand tobacco smoke exposure: No Alcohol intake: current Alcohol use details: socially Substance use: current Other substance usage details: edibles for sleep Comments At time of signature, I have reviewed and agree with nursing past medical, surgical, social and family history unless otherwise noted. Please see nursing chart for further information. There is no relevant family history pertinent to the presenting complaint Exam Narrative: GENERAL: Ill-appearing, well-nourished, and in no acute distress. HEAD: Normocephalic, atraumatic. EYES: EOMI. No redness or drainage. Conjunctivae normal. ENT: Mucous membranes pink and moist. Nares congested with rhinorrhea. TMs normal bilaterally. Throat mildly erythematous without edema or exudate. Uvula midline. NECK: Normal AROM. Supple. No lymphadenopathy. CHEST: No respiratory distress. Clear to auscultation. HEART: Regular rate and rhythm. No murmur appreciated. EXTREMITIES: Normal range of motion. No edema. SKIN: Warm, dry, no rash. Capillary refill normal. Normal skin turgor. NEURO: No focal deficits. Alert and oriented x3. Gait steady. PSYCH: Normal affect. No signs of depression or anxiety. Course Course Level of Care: Express Care Visit Vital Signs Vital signs: Vital Signs Temperature 99.4 F 07/15/25 16:33 Pulse Rate 96 07/15/25 16:33 Respiratory Rate 18 07/15/25 16:33 Blood Pressure 143/89 H 07/15/25 16:33 Pulse Oximetry 98 07/15/25 16:33 Oxygen Delivery Room Air 07/15/25 16:33 Temperature 99.4 F 07/15/25 16:33 Pulse Rate 96 07/15/25 16:33 Respiratory Rate 18 07/15/25 16:33 Blood Pressure 143/89 H 07/15/25 16:33 Pulse Oximetry 98 07/15/25 16:33 Oxygen Delivery Room Air 07/15/25 16:33 Reviewed MDM - URI/Sore Throat MDM Narrative Medical decision making narrative: 44-year-old female patient presents today complaining of a 2 day history of sore throat cough postnasal drip, chills, cough, body aches, fatigue, fever with a T- max of 101.2?. She also reports some mild shortness of breath with exertion. Currently rates her pain 3/10 and has tried some DayQuil with mild relief. She is a nonsmoker. Needs a note for work tomorrow. Works at a school. Upon exam, patient is ill-appearing with nasal congestion, rhinorrhea, mildly erythematous throat. COVID-19 positive. Discussed OTC medication for symptom control, duration of illness, anticipatory guidance and ED precautions. Vital signs stable. Patient agrees with plan. Differential Diagnosis Differential diagnosis: Likely upper respiratory infection, influenza and other (COVID-19) Lab Data Attestation: I reviewed the patient's lab results. Lab results narrative: COVID positive. Influenza negative. Critical Care Time Critical Care Time Critical Care Time: No Discharge Plan Discharge Clinical Impression: COVID-19 Patient Disposition: Home Condition: Stable Instructions: COVID-19 (Coronavirus Disease 2019) (ED) Additional Instructions: You have tested positive for COVID-19 today. Continue [id number] medications such as Tylenol or ibuprofen for fever/pain. Rest and stay hydrated. Follow-up with your PCP in 1 week if symptoms are not improving. As discussed, if symptoms worsen go to the ER immediately for further evaluation. Patient Language: Setswana Prescriptions: No Action Alyacen (28) 0.5/0.75/1 mg- 35 mcg tablet levothyroxine [Synthroid] 150 mcg tablet 150 mcg PO .6 times weekly alprazolam 0.25 mg tablet 0.25 mg PO TID PRN (Reason: anxiety) Qty: 30 0RF Follow-up/Referrals: Freddie,MD Aziza [Primary Care Provider, Family Practice] Stand Alone Forms: Work/School Release IP Time of Disposition: 16:58
[2025-07-15 16:56] LABS: EDINFLUASCREEN Negative (Negative); EDINFLUBSCREEN Negative (Negative)
[2025-07-15 16:59] LABS: EDCOVIDSCREEN Negative (Negative)
== END 2025-07-15 17:00 | disposition home or self-care (01) ==
PROVIDERS: Emergency Provider Nurse Practitioner; PCP Family Medicine
DX: U07.1 COVID-19 (principal); F41.9 Anxiety disorder, unspecified; Z85.828 Personal history of other malignant neoplasm of skin; Z85.850 Personal history of malignant neoplasm of thyroid
CPT/HCPCS: 87426; 87804; 99212; G0463